=== PATIENT | male | born 1970 | race Caucasian/White ===

== ENCOUNTER 2017-12-08 17:34 | Emergency (ER) | payer OTHER ==
[2017-12-08 17:41] VITALS: BP 117/78; PULSE 76; TEMP 98.8; BMI 28.5
[2017-12-08] MEDS ORDERED: SODIUM CHLORIDE 1,000 ML IV ONE ×2 (18:07→21:22)
--- NOTE | 2017-12-08 18:20 | PDOC ---
History of Present Illness - General History Source: Patient <La Bach - Last Filed: 12/08/17 18:09> - General History Source: Patient (The patient is a 47 year old male, accompanied by , with no significant past medical history, who presents to the emergency department via walk-in complaining of two days of abdominal discomfort, bloating and 3-4 episodes of diarrhea (non bloody). The patient states he feels better at presentation than he has in the past few days. 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 The patient states no one else who ate the food experienced the symptoms. As per patients , the patient has been complaining of increased bloating for the past few months. The patient reports increased stressors in his life. He denies any recent fever, chills, nausea or vomit. He denies any chest pain or shortness of breath.), Family Exam Limitations: No Limitations <Deandre Rosales - Last Filed: 12/08/17 19:12> - General Chief Complaint: Diarrhea Stated Complaint: DIARRHEA, ABD PAIN Time Seen by Provider: 12/08/17 17:42 Past History - Past Medical History COPD: No - Surgical History Cholecystectomy: Yes - Suicide/Smoking/Psychosocial Hx Smoking History: Former smoker Have you smoked in the past 12 months: Yes Number of Cigarettes Smoked Daily: 5 Information on smoking cessation initiated: Yes Hx Alcohol Use: (social) <La Bach - Last Filed: 12/08/17 18:09> <Deandre Rosales - Last Filed: 12/08/17 19:12> - Past Medical History Allergies/Adverse Reactions: Allergies Allergy/AdvReac Type Severity Reaction Status Date / Time codeine Allergy Verified 12/08/17 17:36 Home Medications: Ambulatory Orders NK [No Known Home Medication] 12/08/17 Review of Systems - Review of Systems Constitutional: No: Chills, Fever, Weakness HEENTM: No: Blurred Vision, Double Vision, Nose Congestion, Throat Pain Respiratory: No: Cough, Shortness of Breath Cardiac (ROS): No: Chest Pain, Lightheadedness, Palpitations, Syncope ABD/GI: Yes: Abdominal Distended, Diarrhea, Abdominal cramping. No: Nausea, Vomiting : No: Burning, Dysuria, Frequency, Flank Pain, Urgency Musculoskeletal: No: Back Pain, Neck Pain Integumentary: No: Rash, Sweating Neurological: No: Headache, Numbness, Tingling, Weakness, Dizziness Psychiatric: No: Anxiety, Depression Endocrine: No: Intolerance to Cold, Intolerance to Heat, Unexplained Weight Gain , Unexplained Weight Loss Hematologic/Lymphatic: No: Anemia, Blood Clots <Deandre Rosales - Last Filed: 12/08/17 19:12> *Physical Exam - Vital Signs Last Vital Signs Temp Pulse Resp BP Pulse Ox 98.8 F 76 18 117/78 97 12/08/17 17:35 12/08/17 17:35 12/08/17 17:35 12/08/17 17:35 12/08/17 17:35 <La Bach - Last Filed: 12/08/17 18:09> - Vital Signs Last Vital Signs Temp Pulse Resp BP Pulse Ox 98.8 F 76 18 117/78 97 12/08/17 17:35 12/08/17 17:35 12/08/17 17:35 12/08/17 17:35 12/08/17 17:35 - Physical Exam General Appearance: Yes: Appropriately Dressed. No: Apparent Distress HEENT: positive: MILAD, Normal ENT Inspection, Normal Voice, Symmetrical, TMs Normal, Pharynx Normal Neck: positive: Trachea midline, Supple Respiratory/Chest: positive: Lungs Clear, Normal Breath Sounds Cardiovascular: positive: Regular Rhythm, Regular Rate Gastrointestinal/Abdominal: positive: Tender (Mild diffuse discomfort to palpation ), Soft. negative: Guarding, Rebound Lymphatic: negative: Adenopathy, Tenderness Musculoskeletal: positive: Normal Inspection. negative: CVA Tenderness Extremity: positive: Normal Inspection, Normal Range of Motion Integumentary: positive: Normal Color, Dry, Warm Neurologic: positive: completion engineer II-XII NML intact, Fully Oriented, Alert, Normal Mood/ Affect, Normal Response, Motor Strength 5/5 <Deandre Rosales - Last Filed: 12/08/17 19:12> ED Treatment Course - LABORATORY CBC & Chemistry Diagram: 12/08/17 18:16 12/08/17 18:15 - ADDITIONAL ORDERS Additional order review: 12/08/17 18:16 RBC 5.39 MCV 97.9 H MCHC 34.7 RDW 14.1 MPV 9.0 Neutrophils % 62.1 Lymphocytes % 18.3 Monocytes % 16.6 H Eosinophils % 2.2 Basophils % 0.8 <Deandre Rosales - Last Filed: 12/08/17 19:12> Medical Decision Making - Medical Decision Making 12/08/17 19:08 Patient care transferred to Dr. Delacruz as per the 7pm shift change. <Deandre Rosales - Last Filed: 12/08/17 19:12> *DC/Admit/Observation/Transfer <La Bach - Last Filed: 12/08/17 18:09> - Attestations Scribe Attestion: 12/08/17 18:36 Documentation prepared by Deandre Rosales, acting as medical technician for La Bach MD. <Deandre Rosales - Last Filed: 12/08/17 19:12> - Discharge Dispostion Condition at time of disposition: Stable - Referrals Referrals: Alesha Delarosa MD [Primary Care Provider] - - Patient Instructions - Post Discharge Activity
[2017-12-08 18:29] LABS: BASO % 0.8 % (0-2.0); EOS % 2.2 % (0-4.5); HEMATOCRIT 52.8 % (35.4-49); HEMOGLOBIN 18.3 GM/dl (11.7-16.9); LYMPH % 18.3 % (8-40); MCHC 34.7 g/dl (32.0-35.9); MEAN CELL VOLUME 97.9 fl (80-96); MONO % 16.6 % (3.8-10.2); NEUT % 62.1 % (42.8-82.8); PLATELET COUNT 241 K/MM3 (134-434); RBC 5.39 M/mm3 (4.00-5.60); RDW 14.1 % (11.9-15.9); WHITE BLOOD COUNT 6.1 K/mm3 (4.0-10.8)
[2017-12-08 18:38] LABS: ALBUMIN 3.4 g/dl (3.5-5.0); ALK PHOS 47 U/L (32-92); ANION GAP 6 (8-16); BILIRUBIN,TOTAL 0.8 mg/dl (0.2-1.0); BLOOD UREA NITROGEN 14 mg/dl (7-18); CALCIUM 7.9 mg/dl (8.4-10.2); CHLORIDE 105 mmol/L (98-107); CO2 24 mmol/L (22-28); CREATININE 1.1 mg/dl (0.6-1.3); GLUCOSE,RANDOM 94 mg/dl (74-106); POTASSIUM 4.1 mmol/L (3.5-5.1); SGOT/AST 47 U/L (10-42); SGPT/ALT 56 U/L (10-40); SODIUM 135 mmol/L (136-145); TOT PROT 6.5 g/dl (6.4-8.3)
[2017-12-08 20:01] LABS: LIPASE 202 U/L (73-393)
--- NOTE | 2017-12-08 20:08 | PDOC ---
*Physical Exam - Vital Signs Last Vital Signs Temp Pulse Resp BP Pulse Ox 98.8 F 76 18 117/78 97 12/08/17 17:35 12/08/17 17:35 12/08/17 17:35 12/08/17 17:35 12/08/17 17:35 ED Treatment Course - LABORATORY CBC & Chemistry Diagram: 12/08/17 18:16 12/08/17 18:15 - ADDITIONAL ORDERS Additional order review: Laboratory Results 12/08/17 18:15 Sodium 135 L Potassium 4.1 Chloride 105 Carbon Dioxide 24 Anion Gap 6 L BUN 14 Creatinine 1.1 Creat Clearance w eGFR > 60 Random Glucose 94 Calcium 7.9 L Total Bilirubin 0.8 AST 47 H ALT 56 H Alkaline Phosphatase 47 Total Protein 6.5 Albumin 3.4 L Lipase 202 12/08/17 18:16 RBC 5.39 MCV 97.9 H MCHC 34.7 RDW 14.1 MPV 9.0 Neutrophils % 62.1 Lymphocytes % 18.3 Monocytes % 16.6 H Eosinophils % 2.2 Basophils % 0.8 - Medications Given in the ED: ED Medications Discontinued Medications Generic Name Dose Route Start Last Admin Trade Name Freq PRN Reason Stop Dose Admin Sodium Chloride 1,000 mls @ 1,000 mls/hr 12/08/17 18:07 12/08/17 18:05 Normal Saline - IV 12/08/17 19:06 1,000 mls/hr ASDIR ONE Administration Progress Note - Progress Note Progress Note: Care of this patient received from Patient feels better after hydration with 2 L of normal saline IV. Patient had no further episodes of diarrhea while here in the emergency room. He will be discharged with instructions to maintain light diet and hydration as tolerated. He should use Imodium as needed after each episode of loose stool. He should planned follow-up with his PMD within the next 5-7 days. He should return to the emergency room if he develops any vomiting/fever/worsening abdominal pain *DC/Admit/Observation/Transfer Diagnosis at time of Disposition: Diarrhea Qualifiers: Diarrhea type: presumed infectious Qualified Code(s): R19.7 - Diarrhea, unspecified - Discharge Dispostion Disposition: HOME Condition at time of disposition: Stable - Referrals Referrals: Alesha Delarosa MD [Primary Care Provider] - Call tomorrow - Patient Instructions Printed Discharge Instructions: Diarrhea Additional Instructions: Continue to drink plenty of fluids Light diet Imodium 1 tablet after each loose stool up to 8 tabs a day Call your general doctor tomorrow to arrange follow-up within 5 days Return to ER if you develop vomiting, fever or bloody stools - Post Discharge Activity
[2017-12-08 21:11] LABS: PH,URINE 5.5 (4.5-8); URINE APPEARANCE Clear; URINE BILIRUBIN Negative (NEGATIVE); URINE COLOR YELLOW; URINE GLUCOSE (UA) Negative (NEGATIVE); URINE KETONE Negative (NEGATIVE); URINE LEUK ESTERASE Negative (NEGATIVE); URINE NITRITE Negative (NEGATIVE); URINE PROTEIN Trace (NEGATIVE); URINE UROBILINOGEN 0.2 (0.2-1.0)
[2017-12-08 22:10] LABS: URINE BACTERIA FEW /hpf (NEGATIVE); URINE WBC 0-2 (0-2)
== END 2017-12-08 21:25 | disposition home or self-care (01) ==
LOC: FER 17:34
PROC: 3E0337Z Introduction of Electrolytic and Water Balance Substance into Peripheral Vein, Percutaneous Approach (ICD-10-PCS; principal; 2017-12-08)
DX: R19.7 Diarrhea, unspecified (principal)
CPT/HCPCS: 36415; 80053; 81003; 81015; 83690; 85025; 99283-25; J7030